=== PATIENT | female | born 1985 | race Caucasian/White ===

== ENCOUNTER 2020-08-27 13:00 | Outpatient (CLI) | payer OTHER ==
--- NOTE | 2020-08-27 13:55 | XRAY Report ---
PROCEDURE: Thoracic Spine 2 View INDICATIONS: BACK PAIN TECHNIQUE: 3 views of the thoracic spine were acquired. COMPARISON: None. FINDINGS: Bones: No fractures or dislocations. No suspicious bony lesions. 12 pairs of ribs are noted, and a ppear intact where visualized. Soft tissues: No paravertebral stripe thickening. IMPRESSION: Unremarkable radiographic examination of thoracic spine. Reviewed by: Naldo Goodrich MD on 08/27/2020 1:54 PM PDT Approved by: Naldo Goodrich MD on 08/27/2020 1:54 PM PDT Station ID: [id number]
== END 2020-08-27 13:01 | disposition home or self-care (01) ==
LOC: DI.N 13:00
PROVIDERS: ATTEND Physician Assistant
DX: M54.6 Pain in thoracic spine (principal)

== ENCOUNTER 2021-11-02 17:31 | Outpatient (CLI) | payer MEDICAID | END 2021-11-02 17:32 | disposition EMS.NT | LOC: EMS 17:31 | DX: S61.411A Laceration without foreign body of right hand, initial encounter (principal); V49.40XA Driver injured in collision with unspecified motor vehicles in traffic accident, initial encounter; Y92.413 State road as the place of occurrence of the external cause ==

== ENCOUNTER 2021-11-02 19:51 | Emergency (ER) | payer MEDICAID, OTHER ==
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
[2021-11-02] MEDS ORDERED: TETANUS/DIPHTHERIA/PERTUSSIS 0.5 ML SYRINGE IM ONE (20:41)
[2021-11-02] MEDS ORDERED: ONDANSETRON ODT 4 MG TABLET TL STA (20:41)
[2021-11-02] MEDS ORDERED: LIDOCAINE 1% 2 ML VIAL SUBQ STA (20:41)
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
[2021-11-02 22:26] VITALS: BP 107/76
== END 2021-11-02 22:25 | disposition home or self-care (01) ==
LOC: ED 19:51
DX: S61.411A Laceration without foreign body of right hand, initial encounter (principal); V49.3XXA Car occupant (driver) (passenger) injured in unspecified nontraffic accident, initial encounter; Z23 Encounter for immunization; Z71.85 Encounter for immunization safety counseling
CPT/HCPCS: 12001; 73130; 90471; 90715; 99283; Q0162

== ENCOUNTER 2022-06-05 16:01 | Emergency (ER) | payer MEDICAID ==
[2022-06-05 16:38] LABS: BASOPHILS # (AUTO) 0.1 10^3/uL (0.0-0.1); BASOPHILS % (AUTO) 0.8 %; EOSINOPHILS # (AUTO) 0.1 10^3/uL (0.0-0.7); EOSINOPHILS % (AUTO) 1.5 %; HCT - HEMATOCRIT 37.9 % (37.0-47.0); HGB - HEMOGLOBIN 12.9 g/dL (12.0-16.0); LYMPHOCYTES # (AUTO) 2.6 10^3/uL (1.5-3.5); LYMPHOCYTES % (AUTO) 38.7 %; MEAN CORPUSCULAR HEMOGLOBIN 32.7 pg (27.0-31.0); MEAN CORPUSCULAR VOLUME 95.9 fL (81.0-99.0); MEAN PLATELET VOLUME 8.8 fL (7.9-10.8); MONOCYTES # (AUTO) 0.4 10^3/uL (0.0-1.0); NEUTROPHILS # (AUTO) 3.5 10^3/uL (1.5-6.6); NEUTROPHILS % (AUTO) 52.8 %; PLT - PLATELET COUNT 275 10^3/uL (130-450); RED BLOOD COUNT 3.95 10^6/uL (4.20-5.40); RED CELL DISTRIBUTION WIDTH 11.9 % (12.0-15.0); WHITE BLOOD COUNT 6.6 x10^3/uL (4.8-10.8)
--- NOTE | 2022-06-05 16:44 | XRAY Report ---
PROCEDURE: Chest 1 View X-Ray INDICATIONS: Chest Pain TECHNIQUE: One view of the chest was acquired. COMPARISON: None. FINDINGS: Surgical changes and devices: None. Lungs and pleura: No pleural effusions or pneumothorax. Lungs are clear. Mediastinum: Mediastinal contours appear normal. Heart size is normal. Bones and chest wall: No suspicious bony lesions. Overlying soft tissues appear unremarkable. IMPRESSION: No acute radiographic abnormality. Reviewed by: Darius Grant MD on 06/05/2022 4:42 PM PDT Approved by: Darius Grant MD on 06/05/2022 4:42 PM PDT Station ID: [id number]
[2022-06-05 17:22] LABS: ALBUMIN 4.2 g/dL (3.2-5.5); ALBUMIN/GLOBULIN RATIO 1.8 (1.0-2.2); BILIRUBIN,TOTAL 0.2 mg/dL (0.2-1.0); CALCIUM 8.7 mg/dL (8.5-10.3); CREATININE 0.6 mg/dL (0.4-1.0); POTASSIUM 3.5 mmol/L (3.5-5.0); TOTAL PROTEIN 6.6 g/dL (6.7-8.2)
--- NOTE | 2022-06-05 17:30 | ED Physician Documentation ---
PD HPI CHEST PAIN - Stated complaint Stated Complaint: CHEST PX - Chief complaint Chief Complaint: Cardiac - History obtained from History obtained from: Patient - History of Present Illness Timing - details: Gradual onset - Additional information Additional information: Patient is a 36-year-old female who presents to the emergency department with chest pain. This been ongoing for the past 7 to 10 days. Usually last for about 10 minutes at a time. Usually occurs at work. She states it is in the center of her chest. Occasionally radiates to the back. Nothing seems to make it better or worse. Sometimes it feels worse to press on the anterior aspect of her chest. She states that she does have a family history of young cardiac disease and that 2 members of her family had coronary bypasses in their 30s. Patient herself does not have any history of cardiac disease. No history of blood clots in the family. 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 - Allergies Allergies/Adverse Reactions: Allergies Allergy/AdvReac Type Severity Reaction Status Date / Time codeine Allergy Nausea Verified 06/05/22 16:09 meperidine [From Demerol] Allergy Nausea Verified 06/05/22 16:09 sumatriptan [From Imitrex] Allergy Anaphylaxis Verified 06/05/22 16:09 - Social History Does the pt smoke?: Yes Smoking Status: Current every day smoker Does the pt drink ETOH?: Yes Does the pt have substance abuse?: No - Immunizations Immunizations are current?: Yes PD ED PE NORMAL - Vitals Vital signs reviewed: Yes - General General: Alert and oriented X 3, No acute distress - HEENT HEENT: Moist mucous membranes - Neck Neck: Supple, no meningeal sign - Cardiac Cardiac: RRR, Strong equal pulses, Other (Mild tenderness to palpation across the anterior chest wall, mainly across the costochondral cartilage at approximately 6 through 8 on the left side. Reproduces pain) - Respiratory Respiratory: No respiratory distress, Clear bilaterally - Abdomen Abdomen: Soft, Non tender, Non distended - Back Back: No CVA TTP, No spinal TTP - Derm Derm: Warm and dry - Extremities Extremities: No edema, No calf tenderness / cord - Neuro Neuro: Alert and oriented X 3 - Psych Psych: Normal mood, Normal affect Results - Vitals Vitals: Vital Signs - 24 hr 06/05/22 06/05/22 06/05/22 16:05 16:36 17:45 Temperature 36.9 C Heart Rate 102 H 88 69 Respiratory 16 18 20 Rate Blood Pressure 114/77 107/77 107/71 O2 Saturation 98 100 100 Oxygen O2 Source Room air - EKG (time done) 1609 EKG releavant findings:: EKG personally interpreted by author of this note. Relevant findings are: Rate: Rate (enter#) (81) Rhythm: NSR [place]: Normal Intervals: Normal SD QRS: Normal Ischemia: Normal ST segments - Labs Labs: Laboratory Tests 06/05/22 06/05/22 06/05/22 16:33 16:33 16:52 WBC 6.6 RBC 3.95 L Hgb 12.9 Hct 37.9 MCV 95.9 MCH 32.7 H MCHC 34.0 RDW 11.9 L Plt Count 275 MPV 8.8 Neut # (Auto) 3.5 Lymph # (Auto) 2.6 [place] # (Auto) 0.4 Eos # (Auto) 0.1 Baso # (Auto) 0.1 Absolute Nucleated RBC 0.00 Nucleated RBC % 0.0 Sodium 137 Potassium 3.5 Chloride 110 Carbon Dioxide 25 Anion Gap 2.0 L BUN 12 Creatinine 0.6 Estimated GFR (MDRD) 114 Glucose 102 H Calcium 8.7 Total Bilirubin 0.2 AST 15 ALT 13 Alkaline Phosphatase 38 L Troponin I High Sens < 2.3 L Total Protein 6.6 L Albumin 4.2 Globulin 2.4 Albumin/Globulin Ratio 1.8 Lipase 40 - Rads (name of study) Chest x-ray Relevant Findings:: Final report received, See rad report PD Medical Decision Making - ED course Complexity details: reviewed results, re-evaluated patient, considered differential (No ST elevation IN, no aortic dissection, no PE, no tension pneumothorax, no aortic aneurysm), d/w patient ED course: Patient with atypical chest pain. CBC, chemistry and troponin do not show any acute abnormalities. EKG is negative. Chest x-ray is negative. Asymptomatic here. Does have mild tenderness on the chest wall, question costochondritis? No evidence of PE. Given her family history of cardiac disease, recommend that she follow-up closely with her doctor for a cardiac stress test. Patient does not have any exertional chest pain. Patient counseled regarding signs and symptoms for which I believe and urgent re-evaluation would be necessary. Patient with good understanding of and agreement to plan and is comfortable going home at this time This document was made in part using voice recognition software. While efforts are made to proofread this document, sound alike and grammatical errors may occur. Departure - Departure Disposition: 01 Home, Self Care Clinical Impression: Chest pain Qualifiers: Chest pain type: unspecified Qualified Code(s): R07.9 - Chest pain, unspecified Condition: Good Instructions: ED Chest Pain Atypical Unkn Cause Follow-Up: your,doctor in 1 week [Other] Comments: You can try Aleve or Motrin for your pain. Please return if you worsen. Your x-ray, EKG and laboratory testing did not reveal any acute abnormalities today. Given your family history, it is recommended that you follow-up with your doctor this week to discuss a cardiac stress test. Discharge Date/Time: 06/05/22 17:46
[2022-06-05 17:46] VITALS: BP 107/71
== END 2022-06-05 17:46 | disposition home or self-care (01) ==
LOC: ED 16:01
DX: R07.9 Chest pain, unspecified (principal); F17.200 Nicotine dependence, unspecified, uncomplicated
CPT/HCPCS: 36415; 80053; 83690; 84484; 85025; 93005; 99283; 99284

== ENCOUNTER 2023-05-01 14:30 | Outpatient (CLI) | payer MEDICAID, OTHER ==
[2023-05-01 20:56] LABS: CHLAMYDIA TRACHOMATIS DNA NEGATIVE (NEGATIVE); NEISSERIA GONORRHOEAE DNA NEGATIVE (NEGATIVE)
[2023-05-01 21:50] LABS: BACTERIAL VAGINOSIS DNA NEGATIVE (NEGATIVE); CANDIDA GLABRATA DNA NEGATIVE (NEGATIVE); CANDIDA GROUP DNA NEGATIVE (NEGATIVE); CANDIDA KRUSEI DNA NEGATIVE (NEGATIVE); TRICHOMONAS VAGINALIS DNA NEGATIVE (NEGATIVE)
== END 2023-05-01 14:45 | disposition home or self-care (01) ==
LOC: LAB.N 14:30
PROVIDERS: ATTEND Physician Assistant Medical
DX: N89.8 Other specified noninflammatory disorders of vagina (principal)
CPT/HCPCS: 81514; 87491; 87591; 87661